=== PATIENT | male | born 1965 | race Caucasian/White ===

== ENCOUNTER 2017-07-02 22:40 | Emergency (ER) | payer MEDICARE, OTHER ==
[~2017-07-02] VITALS: Ht 180.3 cm; Wt 129.0 kg
[~2017-07-02 22:40] MED LIST: ARIP30TA PO; HYDR25TA PO; LISI40TA4 PO; LURA40 PO; METF500T7 PO; METO-416 PO; PRAV40TA3 PO
[2017-07-02] MEDS ORDERED: PALI6 PO (22:53)
[2017-07-02] MEDS ORDERED: ATOR40TA28 PO (22:53)
[2017-07-02] MEDS ORDERED: MIRT30 PO (22:53)
[2017-07-02] MEDS ORDERED: ASPI81 PO (22:53)
[2017-07-02] MEDS ORDERED: ATEN1TAB3 PO (22:53)
[2017-07-02] MEDS ORDERED: AMLO-511 PO (22:53)
[2017-07-02 22:57] LABS: GLUCOSE,POINT OF CARE 101 MG/DL (70-110)
[2017-07-02 23:18] LABS: BASOPHILS % (AUTO) 0.6 % (0.0-2.0); EOSINOPHILS % (AUTO) 4.1 % (1.0-6.0); HEMATOCRIT 42.8 % (41-53); HEMOGLOBIN 14.5 g/dL (13.5-17.5); LYMPHOCYTES # (AUTO) 2.1 K/uL (1.0-4.8); LYMPHOCYTES % (AUTO) 19.7 % (22.0-44.0); MEAN CORPUSCULAR HGB CONC 33.8 G/dL (31.0-37.0); MEAN CORPUSCULAR VOLUME 89 fL (80-100); MONOCYTES # (AUTO) 0.6 K/uL (0.1-1.0); MONOCYTES % (AUTO) 5.4 % (2.0-9.0); NEUTROPHILS # (AUTO) 7.5 K/uL (1.8-7.7); NEUTROPHILS % (AUTO) 70.2 % (40.0-70.0); PLATELET COUNT (AUTO) 261 K/uL (150-450); RED BLOOD CELL COUNT(AUTO) 4.83 MIL/uL (4.50-5.90); RED CELL DISTRIBUTION WIDTH 15.7 % (11.5-14.5); WHITE BLOOD COUNT (AUTO) 10.7 K/uL (4.5-11.0)
[2017-07-02 23:34] LABS: ANION GAP 9 mmol/L (8-16); CALCIUM, TOTAL 8.6 mg/dL (8.8-10.5); CARBON DIOXIDE 29 mmol/L (22-29); CHLORIDE 104 mmol/L (98-107); CREATININE 1.01 mg/dL (0.60-1.30); GLOMERULAR FILTR. RATE CALC > 60 mL/min (>60); POTASSIUM 3.3 mmol/L (3.5-5.1); SODIUM SERUM 142 mmol/L (136-145); UREA NITROGEN, BLOOD 13 mg/dL (7-18)
[2017-07-02 23:35] LABS: ALANINE AMINOTRANSFERASE 22 U/L (12-78); ALBUMIN 3.5 g/dL (3.4-5.0); ASPARTATE AMINOTRANSFERASE 13 U/L (15-37); BILIRUBIN,TOTAL 0.3 mg/dL (0.1-1.0); TOTAL PROTEIN, SERUM 7.3 g/dL (6.4-8.2)
[2017-07-03 00:46] VITALS: BP 139/80
[2017-07-03] MEDS ORDERED: LORazepam 2 MG TABLET PO ONE (01:00)
[2017-07-03] MEDS ORDERED: HALOPERIDOL 5 MG TABLET PO ONE (01:00)
[2017-07-03] MEDS ORDERED: POTASSIUM CHLORIDE 10% 40 MEQ/30 ML LIQUID UDCUP PO ONE (01:00)
== END 2017-07-03 00:56 | disposition home or self-care (01) ==
LOC: EMS 22:42
DX: F20.0 Paranoid schizophrenia (principal); E87.6 Hypokalemia; E11.9 Type 2 diabetes mellitus without complications; I10 Essential (primary) hypertension; F17.210 Nicotine dependence, cigarettes, uncomplicated; Z79.82 Long term (current) use of aspirin; Z88.5 Allergy status to narcotic agent
CPT/HCPCS: 36415; 80053; 80307; 82962; 85025; 99284; 99406; G0480